=== PATIENT | male | born 1980 | race Caucasian/White ===

== ENCOUNTER 2018-07-29 08:20 | Observation (INO) | payer SELFPAY ==
[~2018-07-29] VITALS: Ht 175.3 cm; Wt 90.7 kg
--- OUTSIDE RECORDS SUMMARY | 2018-07-29 08:26 | XMS REPORT ---
Author Author ALFONZO BINGHAM Organization [facility] Address [address] [place] [address] Care Team Providers Care Steamfitter Name Role Phone ALFONZO BINGHAM Unavailable PROBLEMS Unknown Problems ALLERGIES No Known Allergies ENCOUNTERS Encounter Location Date Diagnosis [facility] [address], [place] [id number] Apr, Closed nondisplaced fracture of middle phalanx of left ring finger, initial encounter S62.[address]A [place] [address] [facility] [id number] [address] Nov, [facility] [id number] [address] Aug, [place] [id number] [address] Aug, IMMUNIZATIONS No Known Immunizations SOCIAL HISTORY Never Assessed REASON FOR VISIT retirement PLAN OF CARE VITAL SIGNS Height 69 in 2018-04-15 Weight 201 lbs 2018-04-15 Heart Rate 76 bpm 2018-04-15 Respiratory Rate 16 2018-04-15 BMI 29.68 kg/m2 2018-04-15 Blood pressure systolic 122 mmHg 2018-04-15 Blood pressure diastolic 74 mmHg 2018-04-15 MEDICATIONS Unknown Medications RESULTS No Results PROCEDURES No Known procedures INSTRUCTIONS MEDICATIONS ADMINISTERED No Known Medications
--- OUTSIDE RECORDS SUMMARY | 2018-07-29 08:26 | XMS REPORT ---
Author Author JACKY GARZA Organization [employer] Address Unknown Phone Unavailable Care Team Providers Care Email Marketing Intern Name Role Phone JACKY GARZA CP Unavailable Allergies No Known Allergies Problems No Known Problems Medications No Known Medications Results No Known Results Summary Purpose [employer] Submission
--- OUTSIDE RECORDS SUMMARY | 2018-07-29 08:26 | XMS REPORT | Continuity of Care Document ---
Demographics Preferred Language Unknown Marital Status Unknown Sikhism Affiliation Unknown Race Unknown Ethnic Group Unknown Author Author [facility] [facility] Organization [facility] Address Unknown Phone Unavailable Allergies Active Description Code Type Severity Reaction Onset Reported/Identified Relationship to Patient Clinical Status Yes No Known Drug Allergies [id number] Miscellaneous Allergy Moderate N/A Yes No Known Environmental Allergies [id number] Miscellaneous Allergy Moderate N/A Yes No Known Food Allergies [id number] Miscellaneous Allergy Moderate N/A Medications There is no data. Problems Date Dx Coded Attending Type Code Diagnosis Diagnosed By 12/16/2013 Sergio PALENCIA, Candice Lu 882.0 Laceration on the hand 12/16/2013 Jona Greer MD 882.0 Laceration on the hand 05/05/2014 Antonino Thakkar, Neymar Lu V58.32 Encounter for removal of sutures 05/05/2014 Neymar Muñiz N.P. 883.0 Laceration of finger 06/10/2018 CRIS, HBOOB I S [id number] Nicotine dependence, cigarettes, uncomplicated 06/10/2018 CRIS, MEHBOOB I P J029 Acute pharyngitis, unspecified Procedures Code Description [place] [address] Office visit - new pt, level 2 12/16/2013 77290 Office/outpatient visit; established patient, level 2 01/01/2014 37344 Office/outpatient visit; established patient, level 1 05/05/2014 Results Test Result Range STREP A PCR - 06/10/18 10:29 NOTIFY IFC NO STREP PYOGENES PCR NEGATIVE Encounters ACCT No. Visit Date/Time Discharge Status Pt. Type Provider Facility Loc./Unit Complaint [id number] 06/10/2018 10:15:00 06/10/2018 11:58:00 DIS Emergency ME RCISHBMICHAELB I [facility] 042 [id number] 05/05/2014 08:21:39 05/05/2014 08:32:18 DIS R Antonino Thakkar, Neymar Webb [id number] 12/25/2013 08:11:09 12/25/2013 08:51:44 DIS Outpatient Jona Greer MD [id number] 12/16/2013 12:51:19 12/16/2013 13:45:46 DIS Outpatient Sergio PALENCIA, Candice
[2018-07-29] MEDS ORDERED: NS IV 1000 ML 1,000 ML IV SCH (08:31)
[2018-07-29 08:56] LABS: BASOPHILS % (AUTO) 1 % (0-10); EOSINOPHILS % (AUTO) 1 % (0-10); HEMATOCRIT 40 % (40-54); LYMPHOCYTES # (AUTO) 1.6 X 10^3 (1.0-4.0); LYMPHOCYTES % (AUTO) 27 % (12-44); MEAN CORPUSCULAR HEMOGLOBIN 31 PG (25-34); MEAN CORPUSCULAR HGB CONC 35 G/DL (32-36); MEAN CORPUSCULAR VOLUME 87 FL (80-99); MEAN PLATELET VOLUME 9.8 FL (7.4-10.4); MONOCYTES # (AUTO) 0.5 X 10^3 (0.0-1.0); MONOCYTES % (AUTO) 9 % (0-12); NEUTROPHILS # (AUTO) 3.8 X 10^3 (1.8-7.8); NEUTROPHILS % (AUTO) 63 % (42-75); PLATELET COUNT 230 10^3/uL (130-400); RED BLOOD COUNT 4.57 10^6/uL (4.35-5.85); RED CELL DISTRIBUTION WIDTH 12.2 % (10.0-14.5)
[2018-07-29] MEDS ORDERED: LORazepam INJ 2 MG/ML (ATIVAN) VIAL IVP ONE (09:00)
[2018-07-29 09:09] LABS: INR 1.2 (0.8-1.4)
--- NOTE | 2018-07-29 09:15 | Diagnostic Imaging Report ---
EXAM: CHEST 1 VIEW, AP/PA ONLY. INDICATION: Altered mental status. COMPARISON: None. FINDINGS: Normal heart size and pulmonary vascularity. No focal pulmonary opacity, pleural effusion, or pneumothorax. No acute osseous findings. IMPRESSION: Negative chest. Dictated by: Dictated on workstation # [id number]
--- NOTE | 2018-07-29 09:17 | Diagnostic Imaging Report ---
EXAM: ABDOMEN/KUB 1VIEW. INDICATION: Altered mental status. COMPARISON: None. FINDINGS: Nonspecific bowel gas pattern. No acute osseous findings. Phleboliths. IMPRESSION: No acute radiographic findings in the abdomen. Dictated by: Dictated on workstation # [id number]
[2018-07-29 09:20] LABS: ALANINE AMINOTRANSFERASE 56 U/L (0-55); ALBUMIN 4.8 GM/DL (3.2-4.5); ALKALINE PHOSPHATASE 32 U/L (40-136); BILIRUBIN,TOTAL 1.4 MG/DL (0.1-1.0); BUN/CREATININE RATIO 19; CALCIUM 9.5 MG/DL (8.5-10.1); CARBON DIOXIDE 21 MMOL/L (21-32); CHLORIDE 103 MMOL/L (98-107); CREATININE SERUM 1.12 MG/DL (0.60-1.30); GFR ESTIMATED > 60; GLUCOSE 127 MG/DL (70-105); POTASSIUM 3.3 MMOL/L (3.6-5.0); SALICYLATE < 5.0 MG/DL (5.0-20.0); SODIUM 138 MMOL/L (135-145); TOTAL PROTEIN 8.4 GM/DL (6.4-8.2)
[2018-07-29] MEDS ORDERED: NS IV 1000 ML 1,000 ML IV ONE (09:26)
[2018-07-29 09:27] LABS: ACETAMINOPHEN < 10 UG/ML (10-30)
[2018-07-29] MEDS ORDERED: LACTATED RINGERS 1,000 ML IV ONE (11:55)
[2018-07-29 12:37] LABS: BILIRUBIN,URINE NEGATIVE (NEGATIVE); CLARITY,URINE CLEAR; COLOR,URINE YELLOW; GLUCOSE, URINE (UA) NEGATIVE (NEGATIVE); KETONES,URINE 4+ (NEGATIVE); LEUKOCYTE ESTERASE ,URINE NEGATIVE (NEGATIVE); NITRITE,URINE NEGATIVE (NEGATIVE); PH,URINE 6 (5-9); PROTEIN,URINE 2+ (NEGATIVE); UROBILINOGEN,URINE 1 MG/DL (NORMAL)
[2018-07-29 12:41] LABS: AMPHETAMINE SCREEN, URINE POSITIVE (NEGATIVE); BARBITURATE SCREEN URINE NEGATIVE (NEGATIVE); BENZODIAZEPINES SCREEN URINE NEGATIVE (NEGATIVE); CANNABINOID SCREEN, URINE NEGATIVE (NEGATIVE); COCAINE SCREEN URINE NEGATIVE (NEGATIVE); METHADONE STAT NEGATIVE (NEGATIVE); METHAMPHETAMINE SCREEN URINE S POSITIVE (NEGATIVE); OPIATE SCREEN URINE NEGATIVE (NEGATIVE); OXYCODONE STAT NEGATIVE (NEGATIVE); PROPOXYPHENE STAT NEGATIVE (NEGATIVE); TRICYCLIC ANTIDEPRESSANTS SCRE NEGATIVE (NEGATIVE)
[2018-07-29 12:46] LABS: BACTERIA,URINE TRACE /HPF
[2018-07-29 12:47] LABS: URINE OTHER MOD SPERM /HPF
--- NOTE | 2018-07-29 13:23 | ED Psychosocial ---
General Chief Complaint: Substance Abuse Stated Complaint: DRUG ABUSE Nursing Triage Note: PT ARRIVED IN THE ED VIA EMS ON STRETHCER. EMS STATED THE PT WAS FOUND OUTSIDE SOAKING WET AND UNAWARE OF WHERE HE WAS, ROUGH ESTIMATE OF ONE HOUR OUTDOORS. EMS STATES THE PT WAS FOUND SHIVERING. PT STATES HE USED METH TWO HOURS AGO UPON ARRIVAL. Source: patient, police, EMS Exam Limitations: no limitations History of Present Illness Date Seen by Provider: Jul 29, 2018 Time Seen by Provider: 08:22 Initial Comments This 38-year-old man is brought to the emergency room after being found by police near vacant home in wet clothes and disoriented. He has brought by EMS. His skin is cold and wet but he has an elevated temperature of 100.1. Patient is jittery, disoriented, and agitated. He admits to using methamphetamines within the last 24 hours. Patient has black and brown soiling on his fingers and in his mouth. Police reported he was handling some small stones and may have placed dirt or stones in his mouth. At times patient is speaking incomprehensible gibberish or exhibiting tangential thinking. He is not always cooperative with assessment or care. He is markedly tachycardic. Allergies and Home Medications Allergies Coded Allergies: No Known Drug Allergies (Unverified , 07/29/18) Home Medications Ibuprofen 200 Mg Tablet, 400 MG PO Q6H PRN for PAIN-MILD, (Reported) Patient Home Medication List Home Medication List Reviewed: Yes Review of Systems Constitutional: see HPI EENTM: see HPI Respiratory: no symptoms reported Cardiovascular: see HPI Gastrointestinal: no symptoms reported Genitourinary: no symptoms reported Musculoskeletal: no symptoms reported Skin: see HPI Psychiatric/Neurological: See HPI Past Ssbrsdc-Acpxoe-Ipotoj Hx Past Med/Social Hx: Reviewed and Corrections made Patient Social History Alcohol Use: Occasionally Uses Recreational Drug Use: Yes Drug of Choice: METH Smoking Status: Current Everyday Smoker Type Used: Cigarettes Recent Foreign Travel: No Contact w/Someone Who Travel: No Recent Infectious Disease Expo: No Physical Abuse: No Sexual Abuse: No Mistreated: No Fear: No Past Medical History Surgeries: No Respiratory: No Cardiac: No Neurological: No Genitourinary: No Gastrointestinal: No Musculoskeletal: No Endocrine: No HEENT: No Cancer: No Psychosocial: No Integumentary: No Physical Exam Vital Signs - First Documented 07/29/18 08:23 Temp 100.1 Pulse 143 Resp 26 B/P (MAP) 138/78 (98) Pulse Ox 99 O2 Delivery Room Air Capillary Refill : Less Than 3 Seconds Height, Weight, BMI Height: 5'9.00" Weight: 200lbs. oz. 90.378641wg; BMI Method:Stated General Appearance: WD/WN, no apparent distress HEENT: PERRL/EOMI, other (Black coding in the mouth consistent with dirt) Neck: normal inspection Respiratory: lungs clear, normal breath sounds, no respiratory distress, no accessory muscle use Cardiovascular: no edema, no murmur, tachycardia Gastrointestinal: normal bowel sounds, non tender, soft Extremities: normal inspection, no pedal edema Neurologic/Psychiatric: no motor/sensory deficits, alert, other (Patient is jittery and exhibits some dystonic movements and shivering. He is disoriented. He seems to be hallucinating at times and has tangential thinking.) Appearance/Memory: disheveled, impaired insight, impaired recent memory Behavior/Eye Contact: avoids eye contact, uncooperative Skin: normal color, other (Cool and moist) Progress/Results/Core Measures Results/Orders Lab Results Laboratory Tests Test 07/29/18 08:38 07/29/18 10:45 07/29/18 12:12 Range/Units White Blood Count 6.0 4.3-11.0 10^3/uL Red Blood Count 4.57 4.35-5.85 10^6/uL Hemoglobin 14.0 13.3-17.7 G/DL Hematocrit 40 40-54 % Mean Corpuscular Volume 87 80-99 FL Mean Corpuscular Hemoglobin 31 25-34 PG Mean Corpuscular Hemoglobin Concent 35 32-36 G/DL Red Cell Distribution Width 12.2 10.0-14.5 % Platelet Count 230 130-400 10^3/uL Mean Platelet Volume 9.8 7.4-10.4 FL Neutrophils (%) (Auto) 63 42-75 % Lymphocytes (%) (Auto) 27 12-44 % Monocytes (%) (Auto) 9 0-12 % Eosinophils (%) (Auto) 1 0-10 % Basophils (%) (Auto) 1 0-10 % Neutrophils # (Auto) 3.8 1.8-7.8 X 10^3 Lymphocytes # (Auto) 1.6 1.0-4.0 X 10^3 Monocytes # (Auto) 0.5 0.0-1.0 X 10^3 Eosinophils # (Auto) 0.0 0.0-0.3 10^3/uL Basophils # (Auto) 0.0 0.0-0.1 10^3/uL Prothrombin Time 15.0 H 12.2-14.7 SEC INR Comment 1.2 0.8-1.4 Activated Partial Thromboplast Time 22 L 24-35 SEC Sodium Level 138 135-145 MMOL/L Potassium Level 3.3 L 3.6-5.0 MMOL/L Chloride Level 103 98-107 MMOL/L Carbon Dioxide Level 21 21-32 MMOL/L Anion Gap 14 5-14 MMOL/L Blood Urea Nitrogen 21 H 7-18 MG/DL Creatinine 1.12 0.60-1.30 MG/DL Estimat Glomerular Filtration Rate > 60 BUN/Creatinine Ratio 19 Glucose Level 127 H 70-105 MG/DL Lactic Acid Level 2.87 *H 0.75 0.50-2.00 MMOL/L Calcium Level 9.5 8.5-10.1 MG/DL Corrected Calcium 8.5-10.1 MG/DL Total Bilirubin 1.4 H 0.1-1.0 MG/DL Aspartate Amino Transf (AST/SGOT) 66 H 5-34 U/L Alanine Aminotransferase (ALT/SGPT) 56 H 0-55 U/L Alkaline Phosphatase 32 L 40-136 U/L C-Reactive Protein High Sensitivity 0.47 0.00-0.50 MG/DL Total Protein 8.4 H 6.4-8.2 GM/DL Albumin 4.8 H 3.2-4.5 GM/DL Salicylates Level < 5.0 L 5.0-20.0 MG/DL Acetaminophen Level < 10 L 10-30 UG/ML Serum Alcohol < 10 <10 MG/DL Urine Color YELLOW Urine Clarity CLEAR Urine pH 6 5-9 Urine Specific Island 1.025 H 1.016-1.022 Urine Protein 2+ H NEGATIVE Urine Glucose (UA) NEGATIVE NEGATIVE Urine Ketones 4+ H NEGATIVE Urine Nitrite NEGATIVE NEGATIVE Urine Bilirubin NEGATIVE NEGATIVE Urine Urobilinogen 1 NORMAL MG/DL Urine Leukocyte Esterase NEGATIVE NEGATIVE Urine RBC (Auto) 1+ H NEGATIVE Urine RBC NONE /HPF Urine WBC NONE /HPF Urine Crystals NONE /LPF Urine Bacteria TRACE /HPF Urine Casts NONE /LPF Urine Mucus NEGATIVE /LPF Urine Other MOD SPERM H /HPF Urine Culture Indicated NO Urine Opiates Screen NEGATIVE NEGATIVE Urine Oxycodone Screen NEGATIVE NEGATIVE Urine Methadone Screen NEGATIVE NEGATIVE Urine Propoxyphene Screen NEGATIVE NEGATIVE Urine Barbiturates Screen NEGATIVE NEGATIVE Ur Tricyclic Antidepressants Screen NEGATIVE NEGATIVE Urine Phencyclidine Screen NEGATIVE NEGATIVE Urine Amphetamines Screen POSITIVE H NEGATIVE Urine Methamphetamines Screen POSITIVE H NEGATIVE Urine Benzodiazepines Screen NEGATIVE NEGATIVE Urine Cocaine Screen NEGATIVE NEGATIVE Urine Cannabinoids Screen NEGATIVE NEGATIVE Micro Results Microbiology 07/29/18 Influenza Types A,B Antigen (YURIY) - Final, Complete My Orders Orders - JAYLA SMITH MD Cbc With Automated Diff (07/29/18 08:31) Comprehensive Metabolic Panel (07/29/18 08:31) Blood Culture (07/29/18 08:31) Sputum Culture (07/29/18 08:31) Urinalysis (07/29/18 08:31) Urine Culture (07/29/18 08:31) Protime With Inr (07/29/18 08:31) Partial Thromboplastin Time (07/29/18 08:31) Chest 1 View, Ap/Pa Only (07/29/18 08:31) Saline Lock/Iv-Start (07/29/18 08:31) Saline Lock/Iv-Start (07/29/18 08:31) Vital Signs Adult Sepsis Patie Q15M (07/29/18 08:31) O2 (07/29/18 08:31) Remove Rings In Anticipation O (07/29/18 08:31) Lactic Acid Analyzer (07/29/18 08:31) Ns Iv 1000 Ml (Sodium Chloride 0.9%) (07/29/18 08:31) Acetaminophen (07/29/18 08:31) Alcohol (07/29/18 08:31) Drug Screen Stat (Urine) (07/29/18 08:31) Salicylate (07/29/18 08:31) Abdomen/Kub 1view (07/29/18 08:34) Lorazepam Injection (Ativan Injection) (07/29/18 09:00) Saline Lock/Iv-Start (07/29/18 09:26) Ns Iv 1000 Ml (Sodium Chloride 0.9%) (07/29/18 09:26) Hs C Reactive Protein (07/29/18 09:26) Influenza A And B Antigens (07/29/18 09:46) Ekg Tracing (07/29/18 09:47) Monitor-Rhythm Ecg Trace Only (07/29/18 09:47) Saline Lock/Iv-Start (07/29/18 11:55) Lactated Ringers (Lr 1000 Ml Iv Solution (07/29/18 11:55) Medications Given in ED Current Medications Medications Dose Ordered Sig/Jyoti Route Start Time Stop Time Status Last Admin Dose Admin Lactated Ringer's 1,000 ml @ 0 mls/hr Q0M ONCE IV 07/29/18 11:55 07/29/18 11:56 DC 07/29/18 12:10 1,000 MLS/HR Lorazepam 1 mg ONCE ONCE IVP 07/29/18 09:00 07/29/18 09:01 DC 07/29/18 09:01 1 MG Sodium Chloride 1,000 ml @ 0 mls/hr Q0M ONCE IV 07/29/18 09:26 07/29/18 09:27 DC 07/29/18 09:43 0 MLS/HR Vital Signs/I&O 07/29/18 07/29/18 07/29/18 07/29/18 08:23 08:25 11:05 13:45 Temp 100.1 98.0 Pulse 143 123 Resp 26 20 B/P (MAP) 138/78 (98) 134/74 Pulse Ox 99 99 97 O2 Delivery Room Air Room Air Room Air Room Air 07/29/18 07/29/18 07/29/18 07/29/18 14:16 14:42 16:01 19:00 Temp 98.0 98.1 Pulse 117 123 101 92 Resp 20 20 B/P (MAP) 134/74 (94) 151/89 (109) Pulse Ox 97 97 O2 Delivery Room Air Room Air Blood Pressure Mean: 94 Progress Progress Note : Progress Note Although patient had a borderline fever and tachycardia, no source of infection was identified. Patient was hydrated and given Ativan for his agitation. Patient requested water and swished his mouth out to rinse out the dirt. Patient was not felt safe to be released because of the tachycardia and his disorientation/psychosis. Initial ECG Impression Date: Jul 29, 2018 Initial ECG Impression Time: 10:01 Initial ECG Rate: 116 Initial ECG Rhythm: S.Tach Comment Sinus tachycardia with no ST elevation or depression. No normal intervals or axis deviation. Diagnostic Imaging Diagonstic Imaging: Xray Plain Films/CT/US/NM/MRI: chest Comments NAME: JAZZ PAZ [facility] REC#: [id number] PT STATUS: ADM Michael : 1980 PHYSICIAN: JAYLA SMITH MD ADMIT DATE: 07/29/18/ICU Signed Date of Exam: 07/29/18 CHEST 1 VIEW, AP/PA ONLY EXAM: CHEST 1 VIEW, AP/PA ONLY. INDICATION: Altered mental status. COMPARISON: None. FINDINGS: Normal heart size and pulmonary vascularity. No focal pulmonary opacity, pleural effusion, or pneumothorax. No acute osseous findings. IMPRESSION: Negative chest. Dictated by: Dictated on workstation # [id number] Dict: 07/29/18912 Trans: 07/29/181723 Interpreted by: JADE BLACK MD Electronically signed by: JADE BLACK MD 07/29/181723 Diagonstic Imaging: Xray Plain Films/CT/US/NM/MRI: abdomen, pelvis Comments NAME: JAZZ PAZ [facility] REC#: [id number] PT STATUS: ADM Michael : 1980 PHYSICIAN: JAYLA SMITH MD ADMIT DATE: 07/29/18/ICU Signed Date of Exam: 07/29/18 ABDOMEN/KUB 1VIEW EXAM: ABDOMEN/KUB 1VIEW. INDICATION: Altered mental status. COMPARISON: None. FINDINGS: Nonspecific bowel gas pattern. No acute osseous findings. Phleboliths. IMPRESSION: No acute radiographic findings in the abdomen. Dictated by: Dictated on workstation # [id number] Dict: 07/29/18913 Trans: 07/29/181723 Interpreted by: JADE BLACK MD Electronically signed by: JADE BLACK MD 07/29/181723 Departure Communication (Admissions) Time/Spoke to Admitting Phy: 13:05 Dr. Jeffries Impression Primary Impression: Acute psychosis Additional Impressions: Methamphetamine abuse Tachycardia Disposition: 09 ADMITTED INPATIENT Condition: Improved Admissions Decision to Admit Reason: Admit from ER (General) Decision to Admit/Date: Jul 29, 2018 Time/Decision to Admit Time: 13:05 Departure-Patient Inst. Referrals: NO,LOCAL PHYSICIAN (PCP/Family) Primary Care Physician Patient Instructions: ALCOHOL AND SUBSTANCE ABUSE JAYLA SMITH MD Jul 29, 2018 13:23
--- OUTSIDE RECORDS SUMMARY | 2018-07-29 13:30 | XMS REPORT | Continuity of Care Document ---
Demographics Preferred Language Unknown Marital Status Unknown Mormon Affiliation Unknown Race Unknown Ethnic Group Unknown Author Author [facility] [facility] Organization [facility] [facility] [facility] Address Unknown Phone Unavailable Allergies Active Description Code Type Severity Reaction Onset Reported/Identified Relationship to Patient Clinical Status Yes No Known Drug Allergies [id number] Miscellaneous Allergy Moderate N/A Yes No Known Environmental Allergies 23316103 Miscellaneous Allergy Moderate N/A Yes No Known Food Allergies 12534171 Miscellaneous Allergy Moderate N/A Medications There is no data. Problems Date Dx Coded Attending Type Code Diagnosis Diagnosed By 12/16/2013 Sergio PALENCIA, Candice Lu 882.0 Laceration on the hand 12/16/2013 Jona Greer MD 882.0 Laceration on the hand 05/05/2014 Antonino Thakkar, Neymar Lu V58.32 Encounter for removal of sutures 05/05/2014 Neymar Muñiz N.P. 883.0 Laceration of finger 06/10/2018 CRIS, HBOOB I S K49652 Nicotine dependence, cigarettes, uncomplicated 06/10/2018 CRIS, MEHBOOB I P J029 Acute pharyngitis, unspecified Procedures Code Description [place] [address] Office visit - new pt, level 2 12/16/2013 81097 Office/outpatient visit; established patient, level 2 01/01/2014 67938 Office/outpatient visit; established patient, level 1 05/05/2014 Results Test Result Range STREP A PCR - 06/10/18 10:29 NOTIFY IFC NO STREP PYOGENES PCR NEGATIVE Encounters ACCT No. Visit Date/Time Discharge Status Pt. Type Provider Facility Loc./Unit Complaint [id number] 06/10/2018 10:15:00 06/10/2018 11:58:00 DIS Emergency ME CRISHBMICHAELB I [facility] 042 [id number] 05/05/2014 08:21:39 05/05/2014 08:32:18 DIS R Antonino Thakkar, Neymar Webb [id number] 12/25/2013 08:11:09 12/25/2013 08:51:44 DIS Outpatient Jona Greer MD [id number] 12/16/2013 12:51:19 12/16/2013 13:45:46 DIS Outpatient Sergio PALENCIA, Candice
[2018-07-29] MEDS ORDERED: ONDANSETRON 4 MG/2 ML (SDV) Z0FRAN IV PRN (14:00)
[2018-07-29] MEDS ORDERED: LORazepam INJ 2 MG/ML (ATIVAN) VIAL IV PRN (14:00)
[2018-07-29] MEDS ORDERED: CATHETER FLUSH 10 ML SYR IV PRN (14:00)
[2018-07-29] MEDS ORDERED: IBUP-30 PO (14:25)
[2018-07-29] MEDS ORDERED: FLU QUADRIvalent (5+ YOA) 2018-2019 (AFLURIA) 0.5 ML IM ONE (14:45)
[2018-07-29] MEDS: NS IV 1000 ML 1,000 ML IV SCH ×2 (15:10→20:40)
[2018-07-29 16:01] VITALS: BP 151/89
[2018-07-29 20:00] VITALS: BP 147/88
== END 2018-07-29 20:40 | disposition left against medical advice (07) ==
LOC: EDUNIT# 08:20 → ER 08:22 → UNDOADMOB 13:26 → ICU 13:26 → UNDODISOB 20:40
PROVIDERS: ADMIT Internal Medicine; ATTEND Internal Medicine
DX: F15.159 Other stimulant abuse with stimulant-induced psychotic disorder, unspecified (principal); F17.210 Nicotine dependence, cigarettes, uncomplicated; R00.0 Tachycardia, unspecified; Z53.21 Procedure and treatment not carried out due to patient leaving prior to being seen by health care provider
CPT/HCPCS: 36415; 71045; 74018; 80053; 80306; 80320; 80329; 81000; 83605; 85025; 85610; 85730; 86141; 87040; 87088; 87804; 93005; 93041; 96361; 96374

== ENCOUNTER 2021-04-21 16:06 | Emergency (ER) | payer OTHER ==
[~2021-04-21] VITALS: Ht 177 cm; Wt 81.8 kg
[~2021-04-21 16:06] MED LIST: IBUP-30 PO
[2021-04-21] MEDS ORDERED: morphine INJ 10 MG/ML 1ML (SYR OR VIAL) IVP STA (16:15)
[2021-04-21] MEDS ORDERED: NS IV 1000 ML 1,000 ML IV SCH (16:15)
[2021-04-21] MEDS ORDERED: NS 100 ML (IVPB) BAG IV ONE (16:45)
[2021-04-21] MEDS ORDERED: IOHEXOL 350 MG/ML 100 ML (OMNIPAQUE 350) VIAL IV ONE (16:45)
[2021-04-21] MEDS ORDERED: HOLD METFORMIN - RECEIVED CONTRAST 20 ML VIAL IV SCH (16:45)
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
[2021-04-21 17:03] LABS: HEMATOCRIT 40 % (40-54); HEMOGLOBIN 13.8 g/dL (13.3-17.7); MEAN CORPUSCULAR HEMOGLOBIN 30 pg (25-34); MEAN CORPUSCULAR HGB CONC 34 g/dL (32-36); MEAN CORPUSCULAR VOLUME 89 fL (80-99); MEAN PLATELET VOLUME 9.8 fL (9.0-12.2); PLATELET COUNT 189 10^3/uL (130-400); WHITE BLOOD COUNT 5.4 10^3/uL (4.3-11.0)
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
[2021-04-21 17:14] LABS: ALBUMIN 3.9 GM/DL (3.2-4.5); CHLORIDE 105 MMOL/L (98-107); POTASSIUM 3.4 MMOL/L (3.6-5.0); SODIUM 137 MMOL/L (135-145)
[2021-04-21 17:16] LABS: GLUCOSE 124 MG/DL (70-105); TOTAL PROTEIN 6.8 GM/DL (6.4-8.2)
[2021-04-21 17:17] LABS: CARBON DIOXIDE 22 MMOL/L (21-32)
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
[2021-04-21 17:18] LABS: BILIRUBIN,TOTAL 0.8 MG/DL (0.1-1.0)
[2021-04-21 17:20] LABS: ALKALINE PHOSPHATASE 33 U/L (40-136); GFR ESTIMATED > 60
[2021-04-21 17:21] LABS: BILIRUBIN,DIRECT 0.3 MG/DL (0.0-0.3); BILIRUBIN,INDIRECT 0.5 MG/DL; BUN/CREATININE RATIO 15
[2021-04-21 17:23] LABS: ALANINE AMINOTRANSFERASE 34 U/L (0-55)
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
[2021-04-21] MEDS ORDERED: ACHD5005 PO (17:49)
[2021-04-21 18:00] VITALS: BP 135/101
== END 2021-04-21 18:00 | disposition home or self-care (01) ==
LOC: EDUNIT# 16:06 → ER 16:11
DX: S82.491A Other fracture of shaft of right fibula, initial encounter for closed fracture (principal); S40.811A Abrasion of right upper arm, initial encounter; R59.1 Generalized enlarged lymph nodes; F17.200 Nicotine dependence, unspecified, uncomplicated; V29.9XXA Motorcycle rider (driver) (passenger) injured in unspecified traffic accident, initial encounter
CPT/HCPCS: 70450; 71045; 71260; 72125; 73552; 73590; 74177; 80048; 80076; 85027; 86850; 86900; 86901; 99284; G0480; L1830; 36415; 80320

== ENCOUNTER 2021-08-24 02:30 | Emergency (ER) | payer SELFPAY ==
[~2021-08-24] VITALS: Ht 177 cm; Wt 82.0 kg
[~2021-08-24 02:30] MED LIST changes: +ACHD5005 PO
[2021-08-24 02:37] VITALS: BP 153/103
[2021-08-24] MEDS ORDERED: ACYCLOVIR 400 MG TABLET (ZOVIRAX) PO STA (03:02)
--- NOTE | 2021-08-24 03:11 | ED Integumentary General ---
General Chief Complaint: Skin/Wound Problems Stated Complaint: LEFT PINKIE SWELLING & PAINFUL Nursing Triage Note: left 5th finger abcess x1 day Source: patient Exam Limitations: no limitations History of Present Illness Date Seen by Provider: Aug 24, 2021 Time Seen by Provider: 03:00 Initial Comments Patient to ER by private conveyance with 1 day of swelling pain in his left fifth digit distal phalanx. He has a large clear fluid-filled bulla. He says it is intensely painful. He is never had this before. No fevers or chills nausea or neck pain. Allergies and Home Medications Allergies Coded Allergies: No Known Drug Allergies (Unverified , 07/29/18) Patient Home Medication List Home Medication List Reviewed: Yes Discontinued Medications Hydrocodone/Acetaminophen (Hydrocodone-Acetamin 5-325 mg) 1 Each Tablet, 1 TAB PO Q4H PRN for PAIN-MODERATE (5-7) Discontinued Reason: No Longer Taking Prescribed by: STEPHANIE ANSARI on 04/21/21 9609 Last Action: Discontinued Ibuprofen (Advil) 200 Mg Tablet, 400 MG PO Q6H PRN for PAIN-MILD, (Reported) Discontinued Reason: No Longer Taking Entered as Reported by: VANCE TOLEDO on 07/29/18 1425 Last Action: Discontinued Review of Systems Review of Systems Constitutional: No chills, No diaphoresis EENTM: No ear discharge, No ear pain Respiratory: No cough, No phlegm, No short of breath Cardiovascular: No edema, No palpitations Gastrointestinal: No abdominal pain, No nausea Genitourinary: No discharge, No dysuria All Other Systems Reviewed Negative Unless Noted: Yes Past Iwyuyyv-Pnrqjg-Noozty Hx Patient Social History Tobacco Use?: Yes Substance use?: No Alcohol Use?: No Pt feels they are or have been: No Past Medical History Surgery/Hospitalization HX: anx/dep Surgeries: No Respiratory: No Cardiac: No Neurological: No Genitourinary: No Gastrointestinal: No Musculoskeletal: No Endocrine: No HEENT: No Cancer: No Psychosocial: No Anxiety, Depression Integumentary: No Physical Exam Vital Signs Vital Signs - First Documented 08/24/21 02:37 Temp 36.9 Pulse 90 Resp 18 B/P (MAP) 153/103 (120) Pulse Ox 100 O2 Delivery Room Air Capillary Refill : Less Than 3 Seconds General Appearance: WD/WN, mild distress HEENT: PERRL/EOMI, pharynx normal Neck: full range of motion, normal inspection Cardiovascular: normal peripheral pulses, regular rate, rhythm Respiratory: no respiratory distress, no accessory muscle use Neurologic/Psychiatric: alert, normal mood/affect, oriented x 3 Skin: other (Swollen painful erythematous fifth digit left hand with a 1 cm bulla intact) Progress/Results/Core Measures Results/Orders My Orders Orders - FATMATA WOO Rx-Hydrocodone/Apap 5-325 Mg (Rx-Vicodin (08/24/21 03:15) Acyclovir Capsule/Tablet (Zovirax Caps (08/24/21 03:02) Gabapentin Capsule/Tablet (Neurontin Cap (08/24/21 03:15) Vital Signs/I&O 08/24/21 02:37 Temp 36.9 Pulse 90 Resp 18 B/P (MAP) 153/103 (120) Pulse Ox 100 O2 Delivery Room Air Blood Pressure Mean: 120 Progress Progress Note : Time: 03:06 Progress Note Herpetic lisa: We will put him on acyclovir, gabapentin and give him some hydrocodone. Instructed to warehouse order picker some capsaicin oil and lidocaine patches. Departure Impression Primary Impression: Herpetic lisa Disposition: 01 HOME, SELF-CARE Condition: Stable Departure-Patient Inst. Decision time for Depature: 03:08 Referrals: NO,LOCAL PHYSICIAN (PCP/Family) Primary Care Physician Patient Instructions: Herpetic Lisa (DC) Add. Discharge Instructions: Capsaicin oil applied to the wound to help reduce pain. Gabapentin 1 capsule every 6 hours as necessary for pain. May cause drowsiness. Hydrocodone 1 tablet every 6 hours as necessary for severe pain may cause drowsiness. Ibuprofen 800 mg every 8 hours necessary for pain. Tylenol 600 mg every 8 hours necessary for pain. Symptoms should resolve in 1 to 2 weeks. Acyclovir 1 capsule 5 times a day for the next 10 days. Try to keep the skin intact as long as possible. The fluid from the blister is infectious and can spread your other digits as well as other people. If it does break open and keep it dressed with clean dry gauze dressing that is changed every time it becomes soiled. All discharge instructions reviewed with patient and/or family. Voiced understanding. Scripts Hydrocodone/Acetaminophen (Hydrocodone-Acetamin 5-325 mg) 1 Each Tablet 1 TAB PO Q4H PRN for PAIN-MODERATE (5-7), #14 TAB Prov: FATMATA WOO 08/24/21 Acyclovir (Acyclovir) 800 Mg Tablet 800 MG PO 5XD for 10 Days, #50 TAB 0 Refills Prov: FATMATA WOO 08/24/21 Gabapentin (Gabapentin) 100 Mg Capsule 100 MG PO Q6H PRN for PAIN-BREAKTHROUGH, #20 CAP 0 Refills Prov: FATMATA WOO 08/24/21 FATMATA WOO Aug 24, 2021 03:11
[2021-08-24] MEDS ORDERED: GABA-486 PO ×2 (03:14→03:15)
[2021-08-24] MEDS ORDERED: ACHD5005 PO ×2 (03:14→03:15)
[2021-08-24] MEDS ORDERED: ACYC-112 PO ×2 (03:14→03:15)
[2021-08-24] MEDS ORDERED: GABAPENTIN 100 MG (NEURONTIN) CAP PO ONE (03:15)
== END 2021-08-24 03:22 | disposition home or self-care (01) ==
LOC: EDUNIT# 02:30 → ER 02:34
DX: B00.89 Other herpesviral infection (principal); Z72.0 Tobacco use
CPT/HCPCS: 99283

== ENCOUNTER 2021-08-26 16:49 | Emergency (ER) | payer SELFPAY ==
[~2021-08-26] VITALS: Ht 177.8 cm; Wt 75.0 kg
[~2021-08-26 16:49] MED LIST changes: +ACYC-112 PO; +GABA-486 PO
[2021-08-26] MEDS ORDERED: DOXY100T2 PO (17:15)
[2021-08-26] MEDS ORDERED: ACHD5005 PO (17:15)
[2021-08-26] MEDS ORDERED: DOXYCYCLINE 100 MG (VIBRAMYCIN) TABLET PO SCH (17:15)
--- NOTE | 2021-08-26 17:16 | ED Upper Extremity ---
General Chief Complaint: Upper Extremity Stated Complaint: L PINKIE SWELLING Source: patient Exam Limitations: no limitations History of Present Illness Date Seen by Provider: Aug 26, 2021 Time Seen by Provider: 17:11 Initial Comments To ER with reports of ongoing left pinky swelling that is getting worse. No fevers or chills. Was seen here a few days ago and given acyclovir, gabapentin, hydrocodone for a presumptive herpetic lisa. He states this began around the cuticle. He has been taking the meds but denies any improvement. Onset: just prior to arrival Severity: moderate Pain/Injury Location: left 5th finger Method of Injury: unknown Modifying Factors: Worse With Movement Allergies and Home Medications Allergies Coded Allergies: No Known Drug Allergies (Unverified , 07/29/18) Patient Home Medication List Home Medication List Reviewed: Yes Acyclovir (Acyclovir) 800 Mg Tablet, 800 MG PO 5XD Prescribed by: FATMATA WOO on 08/24/21314 Doxycycline Hyclate (Doxycycline Hyclate) 100 Mg Tablet, 100 MG PO BID Prescribed by: STEPHANIE ANSARI on 08/26/211714 Gabapentin (Gabapentin) 100 Mg Capsule, 100 MG PO Q6H PRN for PAIN-BREAKTHROUGH Prescribed by: FATMATA WOO on 08/24/21314 Hydrocodone/Acetaminophen (Hydrocodone-Acetamin 5-325 mg) 1 Each Tablet, 1 TAB PO Q4H PRN for PAIN-MODERATE (5-7) Prescribed by: FATMATA WOO on 08/24/21315 Hydrocodone/Acetaminophen (Hydrocodone-Acetamin 5-325 mg) 1 Each Tablet, 1 TAB PO Q4H PRN for PAIN-MODERATE (5-7) Prescribed by: STEPHANIE ANSARI on 08/26/211715 Discontinued Medications Ibuprofen (Advil) 200 Mg Tablet, 400 MG PO Q6H PRN for PAIN-MILD, (Reported) Discontinued Reason: No Longer Taking Entered as Reported by: VANCE TOLEDO on 07/29/18 2915 Review of Systems Constitutional: see HPI EENTM: see HPI Respiratory: no symptoms reported Cardiovascular: no symptoms reported Genitourinary: no symptoms reported Musculoskeletal: no symptoms reported Skin: see HPI Psychiatric/Neurological: No Symptoms Reported Past Tjyxqpv-Kblhjn-Gpxabg Hx Patient Social History Tobacco Use?: Yes Tobacco type used: Cigarettes Smoking Status: Current Everyday Smoker Use of E-Cig and/or Vaping dev: No Substance use?: No Alcohol Use?: No Pt feels they are or have been: No Immunizations Up To Date Influenza Vaccine Up-to-Date: No; Not Current First/Initial COVID19 Vaccinat: NOT GOT Second COVID19 Vaccination William: NOT GOT Third COVID19 Vaccination Date: NOT GOT Past Medical History Surgery/Hospitalization HX: anx/dep Surgeries: No Respiratory: No Cardiac: No Neurological: No Genitourinary: No Gastrointestinal: No Musculoskeletal: No Endocrine: No HEENT: No Cancer: No Psychosocial: No Anxiety, Depression Integumentary: No Physical Exam Vital Signs Vital Signs - First Documented 08/26/21 16:56 Temp 37.0 Pulse 124 Resp 20 B/P (MAP) 145/105 (118) Pulse Ox 98 O2 Delivery Room Air Capillary Refill : Height, Weight, BMI Height: 5'9.00" Weight: 200lbs. 0.0oz. 90.048024gy; 26.00 BMI Method:Stated General Appearance: WD/WN, no apparent distress Neck: non-tender, full range of motion Respiratory: no respiratory distress, no accessory muscle use Gastrointestinal: normal bowel sounds, non tender Hand: Left, limited ROM (There is a large bulla to the dorsal aspect of the left pinky finger well demarcated this extends proximally to the MCP joint. It does not involve the pad of the finger. Minimal cellulitis extending proximally to the mid metacarpal. This large tense bulla was unroofed with a pair of scissors, large amount of purulent material expressed. The devitalized tissue was debrided. This was then irrigated with saline then covered with Xeroform and tube gauze. I will add doxycycline to his medication regimen. We did obtain a culture of the wound.) Neurologic/Psychiatric: alert, normal mood/affect, oriented x 3 Skin: normal color, warm/dry Progress/Results/Core Measures Results/Orders My Orders Orders - STEPHANIE ANSARI APRN Wound Culture (08/26/21 17:09) Doxycycline Hyclate Tablet (Vibramycin T (08/26/21 17:15) Vital Signs/I&O 08/26/21 16:56 Temp 37.0 Pulse 124 Resp 20 B/P (MAP) 145/105 (118) Pulse Ox 98 O2 Delivery Room Air Departure Impression Primary Impression: Paronychia Disposition: 01 HOME, SELF-CARE Condition: Stable Departure-Patient Inst. Decision time for Depature: 17:14 Referrals: NO,LOCAL PHYSICIAN (PCP/Family) Primary Care Physician Patient Instructions: ABSCESS Add. Discharge Instructions: 1. Return to ER on Saturday for recheck. Take a pain pill 1 hour before you come and soak this in some water for about an hour before you come out here. This will ease removal of the dressing. All discharge instructions reviewed with patient and/or family. Voiced understanding. Scripts Hydrocodone/Acetaminophen (Hydrocodone-Acetamin 5-325 mg) 1 Each Tablet 1 TAB PO Q4H PRN for PAIN-MODERATE (5-7), #14 TAB Prov: STEPHANIE ANSARI APRN 08/26/21 Doxycycline Hyclate (Doxycycline Hyclate) 100 Mg Tablet 100 MG PO BID, #20 TAB 0 Refills Prov: STEPHANIE ANSARI APRN 08/26/21 STEPHANIE ANSARI APRN Aug 26, 2021 17:16
[2021-08-26 17:47] VITALS: BP 140/92
== END 2021-08-26 17:42 | disposition home or self-care (01) ==
LOC: EDUNIT# 16:49 → ER 16:51
DX: L03.012 Cellulitis of left finger (principal); F17.210 Nicotine dependence, cigarettes, uncomplicated
CPT/HCPCS: 87070; 87077; 87186; 87205; 99283

== ENCOUNTER 2021-12-24 17:21 | Emergency (ER) | payer SELFPAY ==
[~2021-12-24] VITALS: Ht 177.8 cm; Wt 77.1 kg
[~2021-12-24 17:21] MED LIST changes: +DOXY100T2 PO
[2021-12-24] MEDS ORDERED: LORazepam INJ 2 MG/ML (ATIVAN) VIAL ONE (17:28)
[2021-12-24] MEDS ORDERED: TETANUS,DIPTH,PERTUSS P/F (BOOSTRIX) 0.5 ML VIAL IM ONE (17:30)
[2021-12-24] MEDS ORDERED: LORazepam INJ 2 MG/ML (ATIVAN) VIAL IVP ONE (17:30)
[2021-12-24] MEDS ORDERED: LIDOCAINE 1% INJ 20 ML VIAL INJ ONE (17:30)
[2021-12-24] MEDS ORDERED: LACTATED RINGERS 1,000 ML IV SCH (17:30)
[2021-12-24] MEDS ORDERED: ceFAZolin INJECTION 1,000 MG VIAL IV ONE (17:30)
[2021-12-24] MEDS ORDERED: fentaNYL INJ 100 MCG/2 ML AMP IVP PRN (17:30)
[2021-12-24 17:33] LABS: BASOPHILS # (AUTO) 0.1 10^3/uL (0.0-0.1); BASOPHILS % (AUTO) 1 % (0-10); EOSINOPHILS # (AUTO) 0.1 10^3/uL (0.0-0.3); EOSINOPHILS % (AUTO) 1 % (0-10); HEMATOCRIT 45 % (40-54); HEMOGLOBIN 14.9 g/dL (13.3-17.7); LYMPHOCYTES # (AUTO) 4.1 10^3/uL (1.0-4.0); LYMPHOCYTES % (AUTO) 50 % (12-44); MEAN CORPUSCULAR HEMOGLOBIN 30 pg (25-34); MEAN CORPUSCULAR HGB CONC 34 g/dL (32-36); MEAN CORPUSCULAR VOLUME 90 fL (80-99); MEAN PLATELET VOLUME 9.7 fL (9.0-12.2); MONOCYTES # (AUTO) 0.8 10^3/uL (0.0-1.0); MONOCYTES % (AUTO) 10 % (0-12); NEUTROPHILS % (AUTO) 37 % (42-75); PLATELET COUNT 243 10^3/uL (130-400); WHITE BLOOD COUNT 8.1 10^3/uL (4.3-11.0)
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
[2021-12-24] MEDS ORDERED: LIDOCAINE 1% INJ 50 ML (XYLOCAINE) VIAL ONE (17:34)
[2021-12-24 17:40] LABS: ALBUMIN 4.2 GM/DL (3.2-4.5); CHLORIDE 103 MMOL/L (98-107); POTASSIUM 3.7 MMOL/L (3.6-5.0); SODIUM 135 MMOL/L (135-145)
[2021-12-24 17:41] LABS: CALCIUM 9.4 MG/DL (8.5-10.1)
[2021-12-24 17:42] LABS: GLUCOSE 93 MG/DL (70-105); TOTAL PROTEIN 7.5 GM/DL (6.4-8.2)
[2021-12-24 17:43] LABS: CARBON DIOXIDE 19 MMOL/L (21-32)
[2021-12-24 17:44] LABS: BILIRUBIN,TOTAL 0.3 MG/DL (0.1-1.0); INR 0.9 (0.8-1.4); PROTHROMBIN TIME PATIENT 12.5 SEC (12.2-14.7)
[2021-12-24 17:46] LABS: ALKALINE PHOSPHATASE 36 U/L (40-136); CREATININE SERUM 1.01 MG/DL (0.60-1.30); GFR ESTIMATED 96
[2021-12-24 17:47] LABS: BUN/CREATININE RATIO 13
[2021-12-24 17:49] LABS: ALANINE AMINOTRANSFERASE 31 U/L (0-55)
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
[2021-12-24] MEDS ORDERED: CEPH500T PO (18:39)
[2021-12-24] MEDS ORDERED: ACHD5005 PO (18:39)
[2021-12-24] MEDS ORDERED: fentaNYL INJ 100 MCG/2 ML AMP IVP ONE (19:00)
[2021-12-24 20:02] VITALS: BP 158/115
[2021-12-24] MEDS ORDERED: NS 100 ML (IVPB) BAG IV ONE (20:15)
[2021-12-24] MEDS ORDERED: IOHEXOL 350 MG/ML 100 ML (OMNIPAQUE 350) VIAL IV ONE (20:15)
[2021-12-24] MEDS ORDERED: HOLD METFORMIN - RECEIVED CONTRAST 20 ML VIAL IV SCH (20:15)
--- NOTE | 2021-12-24 21:46 | Diagnostic Imaging Report ---
INDICATION: Foot pain. COMPARISON: None. FINDINGS: Three views of the left foot demonstrate no acute fracture or dislocation. There are no focal osseous lesions. There is no soft tissue swelling. Joint spaces are well maintained. No radiopaque foreign bodies are seen. IMPRESSION: No acute fractures or dislocations of the left foot. Dictated by: Dictated on workstation # [id number]
[2021-12-25] MEDS ORDERED: HYDR-3820 PO (08:50)
== END 2021-12-24 21:05 | disposition home or self-care (01) ==
LOC: EDUNIT# 17:21 → ER 17:22
DX: S81.831A Puncture wound without foreign body, right lower leg, initial encounter (principal); Z72.0 Tobacco use; X93.XXXA Assault by handgun discharge, initial encounter
CPT/HCPCS: 71045; 73590; 73630; 73706; 80053; 85025; 85610; 99285; G0480; 36415; 80320